=== PATIENT | male | born 1980 | race Hispanic/Latino ===

== ENCOUNTER 2018-03-19 13:05 | Emergency (ER) | payer SELFPAY ==
[2018-03-19] MEDS ORDERED: diphenhydrAMINE 25 MG CAP ONE (13:37)
[2018-03-19] MEDS ORDERED: Dexamethasone 4 mg/ml Vial ONE (13:37)
== END 2018-03-19 15:06 | disposition home or self-care (01) ==
LOC: ERS 13:05
DX: T63.441A Toxic effect of venom of bees, accidental (unintentional), initial encounter (principal); F17.210 Nicotine dependence, cigarettes, uncomplicated
CPT/HCPCS: 99282; J1100; Q0163